=== PATIENT | female | born 1935 | race American Indian/Alaskan Native ===

== ENCOUNTER 2021-04-15 12:23 | Outpatient (CLI) | payer MEDICARE ==
--- NOTE | 2021-04-15 13:40 | XRay Report ---
RIGHT KNEE, 4 views HISTORY: Patellar pain. COMPARISON: None. TECHNIQUE: 4 views of the right knee obtained. FINDINGS: Bones: No fracture or dislocation. Joint spaces: Mild lateral joint space narrowing and osteophytosis. Soft tissues: No significant abnormality. Additional findings: None. IMPRESSION: Right knee without evidence of acute osseous injury.. Mild lateral compartment osteoarthritic change. Signer Name: Isrrael Adames MD Signed: 04/15/2021 1:36 PM Workstation Name: [id number]
== END 2021-04-15 12:24 | disposition home or self-care (01) ==
LOC: XRAY 12:23
PROVIDERS: ATTEND Internal Medicine
DX: M17.11 Unilateral primary osteoarthritis, right knee (principal)